=== PATIENT | male | born 1970 | race African-American/Black ===

== ENCOUNTER 2018-02-19 15:31 | Outpatient (CLI) | payer BC ==
--- NOTE | 2018-02-19 16:57 | RAD ---
KUB: Date: 02/19/18 HISTORY: 48-year-old male with history of abdominal pain. FINDINGS: There is some gas and minimal scattered fecal material in the colon. No evidence of large or small sarkis wel obstruction. No overt calculus. IMPRESSION: Unremarkable abdomen 1 view. POS: [facility]
== END 2018-02-19 15:32 | disposition home or self-care (01) ==
LOC: RAD-FRANK 15:31
PROVIDERS: ATTEND Nurse Practitioner Family
DX: R10.9 Unspecified abdominal pain (principal)
CPT/HCPCS: 74018